=== PATIENT | female | born 2000 ===

== ENCOUNTER 2022-12-16 17:03 | Emergency (ER) | payer SELFPAY ==
[~2022-12-16] VITALS: Ht 153 cm; Wt 72.0 kg
[2022-12-16 17:40] LABS: BILIRUBIN,URINE NEGATIVE (NEGATIVE); CLARITY,URINE CLEAR; COLOR,URINE YELLOW; GLUCOSE, URINE (UA) NEGATIVE (NEGATIVE); KETONES,URINE NEGATIVE (NEGATIVE); LEUKOCYTE ESTERASE ,URINE 2+ (NEGATIVE); NITRITE,URINE NEGATIVE (NEGATIVE); PROTEIN,URINE NEGATIVE (NEGATIVE)
--- NOTE | 2022-12-16 17:45 | ED Abdominal Pain ---
General Chief Complaint: OB < 20 WEEKS Stated Complaint: ABDOMINAL PAIN Nursing Triage Note: PT STATES BUT DOES NOT KNOW HOW FAR ALONG FOR SURE, STATES LESS THAN 20 WEEKS THOUGH "JUST " UNSURE OF LMP DUE TO IRREGULAR PERIODS, LOW BACK PAIN, LOW BAD PAIN, HEADACHE, UPPER CHEST BURNING Source of Information: Patient Exam Limitations: No Limitations History of Present Illness Date Seen by Provider: Dec 16, 2022 Time Seen by Provider: 17:42 Initial Comments Patient is a 22-year-old female who presents to the ED for low back pain, lower abdominal pain, headache, burning in the chest. Patient states she is currently . She is . Last menstrual cycle about 2 to 3 months ago. She states that yesterday evening started having pain in her lower back described as sharp and mild. This pain has intensified with pain in her lower abdomen, upper chest. When the pain does occur she gets a pain in her upper chest described as burning. She noted some mild bright red blood with urination today. Denies history of kidney stones. Denies taking thing for pain. She denies of any obvious vaginal bleeding, vaginal discharge. She has not had a menstrual cycle. She is scheduled to follow-up with Dr. Bloom next week. She is currently on prenatals. She does report a mild headache. No current chest pain. She denies of any frequent urination, pain with urination, vaginal discharge. No history of previous abdominal surgery. Patient denies of any recent travels or surgeries. She denies visual changes, vomiting, unilateral muscle weakness or sensory changes, fever, chills, body aches, cough, vomiting, diarrhea Allergies and Home Medications Patient Home Medication List Home Medication List Reviewed: Yes Review of Systems Review of Systems Constitutional: No chills, No diaphoresis, No fever, No malaise, No weakness EENTM: No Double Vision, No Eye Pain, No Ear Pain, No Mouth Pain, No Mouth Swelling Respiratory: Denies Cough, Denies Orthopnea Cardiovascular: Chest Pain Gastrointestinal: Abdominal Pain; Denies Diarrhea, Denies Nausea, Denies Vomiting Genitourinary: Denies Burning, Denies Discharge, Denies Drainage, Denies Frequency, Denies Flank Pain; Hematuria Musculoskeletal: back pain; No joint pain Skin: No change in color Psychiatric/Neurological: Denies Anxiety All Other Systems Reviewed Negative Unless Noted: Yes Past [id number]-[id number] Hx Patient Social History Tobacco Use?: No Substance use?: No Alcohol Use?: No Immunizations Up To Date Second COVID19 Vaccination [place]am: YES Past Medical History Surgery/Hospitalization HX: PT DENIES MED HX Physical Exam Vital Signs Vital Signs - First Documented 12/16/22 17:20 Temp 37.2 Pulse 69 Resp 20 B/P (MAP) 104/69 (81) O2 Delivery Room Air Capillary Refill : Less Than 3 Seconds Height/Weight/BMI Height: '" Weight: lbs. oz. kg; 30.00 BMI Method: General Appearance: WD/WN, no apparent distress HEENT: PERRL/EOMI, normal ENT inspection, TMs normal, pharynx normal Neck: non-tender, full range of motion, supple, normal inspection Respiratory: chest non-tender, lungs clear, normal breath sounds, no respirator y distress, no accessory muscle use Cardiovascular: regular rate, rhythm, no edema, no gallop, no JVD Gastrointestinal: normal bowel sounds, soft, no organomegaly, no pulsatile mass, tenderness (Epigastric tenderness, suprapubic tenderness, left lower quadrant tenderness. Normal bowel sounds throughout. 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, no motor/sensory deficits, alert, normal mood/affect, oriented x 3 Skin: normal color, warm/dry Progress/Results/Core Measures Results/Orders Lab Results Laboratory Tests Test 12/16/22 17:30 12/16/22 17:57 Range/Units Urine Color YELLOW Urine Clarity CLEAR Urine pH 7.0 5-9 Urine Specific [place] 1.010 L 1.016-1.022 Urine Protein NEGATIVE NEGATIVE Urine Glucose (UA) NEGATIVE NEGATIVE Urine Ketones NEGATIVE NEGATIVE Urine Nitrite NEGATIVE NEGATIVE Urine Bilirubin NEGATIVE NEGATIVE Urine Urobilinogen 1.0 < = 1.0 MG/DL Urine Leukocyte Esterase 2+ H NEGATIVE Urine RBC (Auto) NEGATIVE NEGATIVE Urine RBC NONE /HPF Urine WBC 0-2 /HPF Urine Squamous Epithelial Cells >50 H /HPF Urine Crystals PRESENT H /LPF Urine Amorphous Sediment FEW ONOFRE PHOSPHATE H /LPF Urine Bacteria TRACE /HPF Urine Casts NONE /LPF Urine Mucus NEGATIVE /LPF Urine Culture Indicated NO Urine Test POSITIVE NEGATIVE White Blood Count 12.4 H 4.3-11.0 10^3/uL Red Blood Count 4.21 3.80-5.11 10^6/uL Hemoglobin 11.7 11.5-16.0 g/dL Hematocrit 36 35-52 % Mean Corpuscular Volume 86 80-99 fL Mean Corpuscular Hemoglobin 28 25-34 pg Mean Corpuscular Hemoglobin Concent 32 32-36 g/dL Red Cell Distribution Width 13.6 10.0-14.5 % Platelet Count 264 130-400 10^3/uL Mean Platelet Volume 9.5 9.0-12.2 fL Immature Granulocyte % (Auto) 0 % Neutrophils (%) (Auto) 45 42-75 % Lymphocytes (%) (Auto) 38 12-44 % Monocytes (%) (Auto) 5 0-12 % Eosinophils (%) (Auto) 11 H 0-10 % Basophils (%) (Auto) 1 0-10 % Neutrophils # (Auto) 5.6 1.8-7.8 10^3/uL Lymphocytes # (Auto) 4.6 H 1.0-4.0 10^3/uL Monocytes # (Auto) 0.7 0.0-1.0 10^3/uL Eosinophils # (Auto) 1.4 H 0.0-0.3 10^3/uL Basophils # (Auto) 0.1 0.0-0.1 10^3/uL Immature Granulocyte # (Auto) 0.1 0.0-0.1 10^3/uL Sodium Level 136 135-145 MMOL/L Potassium Level 3.7 3.6-5.0 MMOL/L Chloride Level 106 98-107 MMOL/L Carbon Dioxide Level 21 21-32 MMOL/L Anion Gap 9 5-14 MMOL/L Blood Urea Nitrogen 13 7-18 MG/DL Creatinine 0.62 0.60-1.30 MG/DL Estimat Glomerular Filtration Rate 130 BUN/Creatinine Ratio 21 Glucose Level 88 70-105 MG/DL Calcium Level 9.3 8.5-10.1 MG/DL Corrected Calcium 8.9 8.5-10.1 MG/DL Total Bilirubin 0.3 0.1-1.0 MG/DL Aspartate Amino Transf (AST/SGOT) 17 5-34 U/L Alanine Aminotransferase (ALT/SGPT) 13 0-55 U/L Alkaline Phosphatase 71 40-136 U/L Total Protein 8.5 H 6.4-8.2 GM/DL Albumin 4.5 3.2-4.5 GM/DL Lipase 23 8-78 U/L Human Chorionic Gonadotropin, Quant 109 H <5 MIU/ML My Orders Orders - SYBIL THOMAS Ua Culture If Indicated (12/16/22 17:18) Hcg,Qualitative Urine (12/16/22 17:28) Cbc With Automated Diff (12/16/22 17:40) Comprehensive Metabolic Panel (12/16/22 17:40) Lipase (12/16/22 17:40) Hcg,Quantitative (12/16/22 17:40) Abo Rh Type (12/16/22 17:40) Vital Signs/I&O 12/16/22 17:20 Temp 37.2 Pulse 69 Resp 20 B/P (MAP) 104/69 (81) O2 Delivery Room Air Blood Pressure Mean: 81 Departure Communication (PCP) Reviewed previous ER visits, H&P, lab testing. Differential diagnosis of early pain in , ectopic , UTI, PID. Patient is a 22-year-old female who is G1, P0. Presents ED with pelvic pain, back pain burning in the chest. She states she believes her last menstrual cycle was 2 months ago. Episode today with small amount of blood with urination. No fever, chills, vomiting, diarrhea. Currently taking prenatals. Follow Dr. Bloom scheduled for follow-up next week. Patient vital signs stable. She is not hypertensive. She is not hypoxic or tachycardic. No current chest pain or shortness of breath. She does have epigastric tenderness, suprapubic tenderness, left lower quadrant tenderness. She has no McBurney point tenderness or tenderness to right upper q uadrant. Generalized lab work, beta quant, urinalysis. She not concern for sexual transmitted infection. No vaginal discharge or vaginal bleeding. CBC showed slight elevated white blood count of 12. Chemistry grossly unremarkable. Beta quant 109. Urinalysis positive for squamous cell +2 leukocytes. Likely contamination. No specific urinary symptoms. no blood in her urine suggesting urolithiasis. No vaginal discharge or vaginal pain concerning for PID. She states she had a positive at at home. She appears to be early in her . She does not appear in acute distress and refuse anything for pain. No evidence suggesting surgical abdomen. She is not anemic. Patient did not meet criteria for callback ultrasound to rule out ectopic . Did provide an order for follow-up tomorrow morning at 730 to get a transvaginal ultrasound rule out ectopic . Results will be called back to the ER if abnormal. Results faxed to Dr. Bloom. Discussed Tylenol. If any worsening symptoms, fever, vomiting, weakness, heavy vaginal bleeding to return back to ED. Impression Primary Impression: Pelvic pain during Additional Impression: Back pain during Disposition: HOME, SELF-CARE Condition: Stable Departure-Patient Inst. Decision time for Depature: 19:04 Referrals: ISABLELA BLOOM MD Patient Instructions: Pelvic Pain Add. Discharge Instructions: Need to follow-up at registration between 7 and 7:30 AM tomorrow for ultrasound. Recommend Tylenol for abdominal cramping. All discharge instructions reviewed with patient and/or family. Voiced understanding. SYBIL THOMAS Dec 16, 2022 17:45
[2022-12-16 18:04] LABS: BASOPHILS # (AUTO) 0.1 10^3/uL (0.0-0.1); BASOPHILS % (AUTO) 1 % (0-10); EOSINOPHILS # (AUTO) 1.4 10^3/uL (0.0-0.3); EOSINOPHILS % (AUTO) 11 % (0-10); HEMATOCRIT 36 % (35-52); HEMOGLOBIN 11.7 g/dL (11.5-16.0); LYMPHOCYTES # (AUTO) 4.6 10^3/uL (1.0-4.0); LYMPHOCYTES % (AUTO) 38 % (12-44); MEAN CORPUSCULAR HEMOGLOBIN 28 pg (25-34); MEAN CORPUSCULAR HGB CONC 32 g/dL (32-36); MEAN CORPUSCULAR VOLUME 86 fL (80-99); MEAN PLATELET VOLUME 9.5 fL (9.0-12.2); MONOCYTES # (AUTO) 0.7 10^3/uL (0.0-1.0); MONOCYTES % (AUTO) 5 % (0-12); NEUTROPHILS # (AUTO) 5.6 10^3/uL (1.8-7.8); NEUTROPHILS % (AUTO) 45 % (42-75); PLATELET COUNT 264 10^3/uL (130-400); WHITE BLOOD COUNT 12.4 10^3/uL (4.3-11.0)
[2022-12-16 18:16] LABS: AMORPHOUS SEDIMENT,UR FEW AMOR PHOSPHATE /LPF; BACTERIA,URINE TRACE /HPF; SQUAMOUS EPITHELIAL CELL,UR >50 /HPF; WBC,URINE 0-2 /HPF
[2022-12-16 18:32] LABS: ALBUMIN 4.5 GM/DL (3.2-4.5)
[2022-12-16 18:33] LABS: POTASSIUM 3.7 MMOL/L (3.6-5.0)
[2022-12-16 18:34] LABS: CALCIUM 9.3 MG/DL (8.5-10.1)
[2022-12-16 18:35] LABS: TOTAL PROTEIN 8.5 GM/DL (6.4-8.2)
[2022-12-16 18:37] LABS: BILIRUBIN,TOTAL 0.3 MG/DL (0.1-1.0)
[2022-12-16 18:39] LABS: CREATININE SERUM 0.62 MG/DL (0.60-1.30)
[2022-12-16 19:11] VITALS: BP 102/72
== END 2022-12-16 19:11 | disposition home or self-care (01) ==
LOC: ER 17:06
DX: O99.891 Other specified diseases and conditions complicating pregnancy (principal); M54.50 Low back pain, unspecified; O26.899 Other specified pregnancy related conditions, unspecified trimester; R10.2 Pelvic and perineal pain; R10.13 Epigastric pain; Z3A.00 Weeks of gestation of pregnancy not specified
CPT/HCPCS: 36415; 80053; 81000; 83690; 84702; 84703; 85025; 86900; 86901